=== PATIENT | male | born 1980 | race Caucasian/White ===

== ENCOUNTER 2024-05-19 13:33 | Emergency (ER) | payer OTHER, SELFPAY ==
[2024-05-19 13:44] VITALS: BP 141/103
--- NOTE | 2024-05-19 15:24 | ED.GENMED ---
History of Present Illness
General
Chief Complaint: Musculo-Skeletal Complaint
Time Seen by Provider: 05/19/24 15:14
History of Present Illness
History of Present Illness:
43-year-old male presents to the emergency department for evaluation of left anterior elbow pain sustained at work after lifting something heavy. Feels weakness to the left upper arm as well as pain to the anterior bicep region.
Review of Systems
Review of Systems
Allergies reviewed?: Yes
All Other Systems: ROS reviewed and negative except as documented in HPI and ROS
Phy Exam
Physical Exam
Physical Exam:
GEN: Well appearing, NAD, WDWN
HEENT: Oral mucosa moist, no scleral icterus
Cardiac: Regular rate
Lung: No respiratory distress, no tachypnea
MSK: Palpable deformity to left distal bicep, range of motion of the left shoulder and elbow is normal
Skin: Good color, no pallor or jaundice, no rashes
Neuro: AO x3, moves all extremities freely
Psych: Calm, cooperative
Course
Orders/Labs/Results
Orders:
Orders
05/19/24 13:48
Elbow, 3 view, Left [CR Elbow - Left Min 3 Views ] Urgent
Comment:
Reason For Exam: elbow
Vital Signs
Initial and Last Documented VS:
Initial Vital Signs
Temp Pulse Resp BP Pulse Ox
98.5 F 98 20 141/103 98
05/19/24 13:44 05/19/24 13:44 05/19/24 13:44 05/19/24 13:44 05/19/24 13:44
Last Documented Vital Signs
Temp Pulse Resp BP Pulse Ox
98.5 F 98 20 141/103 98
05/19/24 13:44 05/19/24 13:44 05/19/24 13:44 05/19/24 13:44 05/19/24 13:44
MDM/Problems Addressed
MDM/Problems Addressed:
Clinical exam consistent with distal bicep tendon rupture. Discussed supportive care and orthopedic follow-up recommendations
*Critical Care Note
Total Time (30-74mins, 75-104mins- exclusive of procedures): Not Applicable
ED Attending Note
-
Portions of this chart may have been created with voice recognition software.� Occasional wrong word or��sound alike� substitutions may have occurred due to the inherent limitations of voice recognition software.
Discharge Plan
Departure
Patient Disposition: Home (Routine Discharge)
Date of Disposition: 05/19/24
Time of Disposition: 15:24
Patient with high blood pressure during this ER visit?: No
Discharge Problem:
Rupture of left distal biceps tendon
Instructions: Biceps Tendon Rupture (DC)
Referrals:
Ravi Caballero MD [Active] -
Interventions
Interventions:
*Risk Screen - Suicide Last Done: 05/19/24 13:44
*Neglect/Abuse Screening Last Done: 05/19/24 13:44
ED- Fall Risk Assessment Last Done: 05/19/24 15:35
*Nursing Disposition Last Done: 05/19/24 15:48
ED-Musculoskeletal Assessment Last Done: 05/19/24 15:34
Discharge Date and Time
Discharge Date/Time: 05/19/24 15:49
Print Language: PORTUGUESE
== END 2024-05-19 15:49 | disposition home or self-care (01) ==
LOC: EMR 13:33
PROVIDERS: EMERGENCY PHYSICIAN Student in an Organized Health Care Education/Training Program; FAMILY PHYSICIAN Physician Assistant Medical
DX: S46.212A Strain of muscle, fascia and tendon of other parts of biceps, left arm, initial encounter (principal); X50.9XXA Other and unspecified overexertion or strenuous movements or postures, initial encounter; Y99.0 Civilian activity done for income or pay
CPT/HCPCS: 99283; 73080

== ENCOUNTER → 2024-06-02 09:07 | Outpatient (REF) | payer OTHER, SELFPAY | LOC: RCS 09:07 | PROVIDERS: ATTENDING PHYSICIAN Internal Medicine Cardiovascular Disease; FAMILY PHYSICIAN Physician Assistant Medical | DX: Z00.8 Encounter for other general examination (principal); R00.2 Palpitations | CPT/HCPCS: 93306 ==